=== PATIENT | male | born 1955 | race Caucasian/White ===

== ENCOUNTER 2019-01-07 12:36 | Outpatient (CLI) | payer OTHER ==
--- NOTE | 2019-01-07 13:10 | RAD ---
EXAM: XR Cervical Spine 4 View Min PROVIDED CLINICAL HISTORY: Neck pain COMPARISON: None FINDINGS: Cervical alignment appears normal. No evidence for abnormal translational motion with flexion and ext ension. Disc space narrowing and endplate degenerative changes are seen at C4-5, C5-6 and C6-7. Vertebral body heights appear preserved. No prevertebral soft tissue swelling apparent. Visualized idalmis ng apices appear clear. No evidence for fracture. IMPRESSION: Cervical spine degenerative change.
--- NOTE | 2019-01-07 13:44 | MRI ---
EXAM: MRI Cervical Spine WO Con PROVIDED CLINICAL HISTORY: Neck pain COMPARISON: None FINDINGS: Cervical alignment appears normal. Vertebral body heights appear preserved. No focal concerning regio nal marrow signal abnormality apparent. The visualized posterior fossa, cervicomedullary junction and cervical spinal cord demonstrate normal signal and morphology. Evaluation of individual levels is limited by patient motion on the axial sequences. At C2-3, there is bilateral facet arthritis without significant central canal or foraminal narrowing apparent. At C3-4, there is left-sided uncinate process hypertrophy and bilateral facet arthritis. There is eff acement of the left ventrolateral subarachnoid space without cord contact. There is severe left foraminal narrowing suspected. There is mild right foraminal narrowing suspected. At C4-5, there is disc space height loss and a broad-based disc osteophyte complex with bilateral unc inate process hypertrophy, left greater than right. There is effacement of the left ventrolateral subarachnoid space with possible mild mass effect upon the left ventral cord. There is severe left fo raminal narrowing and probably moderate right foraminal narrowing. At C5-6, there is disc space height loss and a broad-based disc osteophyte complex with bilateral unc inate process hypertrophy. There is moderate right foraminal narrowing and mild to moderate left foraminal narrowing. There is effacement of the ventral subarachnoid space without cord contact or de formity. At C6-7, there is a broad-based disc osteophyte complex and bilateral uncinate process hypertrophy. T here is moderate-severe left and moderate right foraminal narrowing. There is effacement of ventral subarachnoid space without cord contact or deformity apparent. At C7-T1, there is no significant central canal or foraminal narrowing apparent. IMPRESSION: 1. Limited study due to patient motion. 2. Advanced multilevel cervical degenerative changes producing areas of primarily foraminal narrowing as described.
== END 2019-01-07 12:37 | disposition home or self-care (01) ==
LOC: TBSIIMAG 12:36
PROVIDERS: ATTEND Physician Assistant Surgical
DX: M54.2 Cervicalgia (principal); M25.519 Pain in unspecified shoulder; M47.812 Spondylosis without myelopathy or radiculopathy, cervical region; M48.02 Spinal stenosis, cervical region
CPT/HCPCS: 72050; 72141

== ENCOUNTER 2019-11-04 15:16 | Outpatient (CLI) | payer MEDICARE, OTHER ==
--- NOTE | 2019-11-04 20:22 | MRI ---
MRI THORACIC SPINE WITHOUT CONTRAST: History: Thoracic radiculitis. Mid back pain on and off for years, which has gotten worse over the st three years. Comparison: None FINDINGS: The vertebral body heights and maintained. There is disc desiccation throughout the thoracic spine. S mall disc protrusions are seen at T7-8, T8-9, T9-10, and T10-11 levels. No cord impingement or compre ssion is seen. No significant central canal stenosis or neural foraminal stenosis is identified. Oste ophyte formation is seen predominately anteriorly. The thoracic spine demonstrates normal course, manish iber and signal. IMPRESSION: Degenerative changes without evidence of cord compression. POS: OFF
== END 2019-11-04 15:17 | disposition home or self-care (01) ==
LOC: BICMRI 15:16
PROVIDERS: ATTEND Specialist
DX: M47.24 Other spondylosis with radiculopathy, thoracic region (principal)
CPT/HCPCS: 72146

== ENCOUNTER 2022-01-04 10:48 | Outpatient (CLI) | payer MEDICARE, OTHER | END 2022-01-04 10:49 | disposition home or self-care (01) | LOC: BICCT 10:48 | PROVIDERS: ATTEND Specialist | DX: M47.24 Other spondylosis with radiculopathy, thoracic region (principal) | CPT/HCPCS: 72128 ==

== ENCOUNTER 2023-03-28 09:26 | Outpatient (CLI) | payer MEDICARE, OTHER | END 2023-03-28 09:27 | disposition home or self-care (01) | LOC: MRI 09:26 | PROVIDERS: ATTEND Neurological Surgery | DX: M54.2 Cervicalgia (principal); M54.6 Pain in thoracic spine; M47.814 Spondylosis without myelopathy or radiculopathy, thoracic region; M25.78 Osteophyte, vertebrae; M47.812 Spondylosis without myelopathy or radiculopathy, cervical region; M48.02 Spinal stenosis, cervical region; M89.38 Hypertrophy of bone, other site; M50.323 Other cervical disc degeneration at C6-C7 level; M53.82 Other specified dorsopathies, cervical region; G96.191 Perineural cyst | CPT/HCPCS: 72141; 72146 ==